=== PATIENT | female | born 1990 ===

== ENCOUNTER → 2017-09-27 | Outpatient (REF) | payer OTHER ==
[2017-09-27 18:24] LABS: HCG, SERUM QUANTITATIVE < 1.0 MIU/ML; THYROID STIMULATING HORMONE 0.949 uIU/ML (0.358-3.740)
[2017-09-27 19:20] LABS: PROGESTERONE 1.1 NG/ML
[2017-09-27 19:20] LABS: ESTRADIOL 27.1 PG/ML; LUTEINIZING HORMONE 3.9 mIU/mL
[2017-09-27 19:21] LABS: FOLLICLE STIMULATING HORMONE 4.5 mIU/mL
== END ==
LOC: M LABDRAW1 16:51
DX: E28.9 Ovarian dysfunction, unspecified (principal)

== ENCOUNTER → 2017-10-08 | Outpatient (CLI) | payer OTHER ==
[2017-10-08 12:56] LABS: PROGESTERONE 0.6 NG/ML
[2017-10-08 12:56] LABS: ESTRADIOL 116.3 PG/ML; LUTEINIZING HORMONE 5.3 mIU/mL
== END ==
LOC: M WUC 10:49
DX: E28.9 Ovarian dysfunction, unspecified (principal)

== ENCOUNTER → 2017-10-29 | Outpatient (CLI) | payer OTHER ==
[2017-10-29 16:56] LABS: HCG, SERUM QUANTITATIVE 704 MIU/ML
[2017-10-29 16:56] LABS: PROGESTERONE 42.3 NG/ML
== END ==
LOC: M WUC 13:36
DX: Z32.00 Encounter for pregnancy test, result unknown (principal)
CPT/HCPCS: 84702

== ENCOUNTER → 2017-10-31 | Outpatient (CLI) | payer OTHER ==
[2017-10-31 19:54] LABS: HCG, SERUM QUANTITATIVE 1663 MIU/ML; THYROID STIMULATING HORMONE 0.703 uIU/ML (0.358-3.740)
[2017-11-01 09:21] LABS: ESTRADIOL 327.9 PG/ML
[2017-11-01 09:44] LABS: PROGESTERONE 58.6 NG/ML
== END ==
LOC: M WUC 16:15
DX: E28.9 Ovarian dysfunction, unspecified (principal)
CPT/HCPCS: 84443

== ENCOUNTER → 2017-11-08 | Outpatient (CLI) | payer OTHER ==
[2017-11-08 18:09] LABS: ESTRADIOL 597.9 PG/ML
[2017-11-08 18:17] LABS: HCG, SERUM QUANTITATIVE 25526 MIU/ML
[2017-11-08 18:59] LABS: PROGESTERONE 66.9 NG/ML
== END ==
LOC: M WUC 16:16
DX: O09.00 Supervision of pregnancy with history of infertility, unspecified trimester (principal)

== ENCOUNTER → 2017-11-15 | Outpatient (CLI) | payer OTHER ==
[2017-11-15 13:54] LABS: PROGESTERONE 54.2 NG/ML
[2017-11-15 13:55] LABS: ESTRADIOL 852.3 PG/ML
[2017-11-15 14:02] LABS: HCG, SERUM QUANTITATIVE 82130 MIU/ML; THYROID STIMULATING HORMONE 0.706 uIU/ML (0.358-3.740)
== END ==
LOC: M WUC 10:32
DX: Z32.01 Encounter for pregnancy test, result positive (principal)
CPT/HCPCS: 84443

== ENCOUNTER → 2017-11-26 | Outpatient (CLI) | payer OTHER ==
[2017-11-26 20:03] LABS: ESTRADIOL 1788.1 PG/ML
[2017-11-26 20:03] LABS: PROGESTERONE 58.4 NG/ML
[2017-11-26 20:11] LABS: HCG, SERUM QUANTITATIVE 181226 MIU/ML; THYROID STIMULATING HORMONE 0.273 uIU/ML (0.358-3.740)
== END ==
LOC: M WUC 16:14
DX: O09.00 Supervision of pregnancy with history of infertility, unspecified trimester (principal)

== ENCOUNTER → 2017-12-31 | Outpatient (REF) | payer OTHER ==
[2017-12-31 20:10] LABS: HEMATOCRIT 35.9 % (36.0-47.0); HEMOGLOBIN 11.8 g/dl (12.0-15.5); MEAN CORPUSCULAR HGB CONC 32.9 g/dl (32.0-36.5); MEAN CORPUSCULAR VOLUME 91.3 fl (80.0-96.0); PLATELET COUNT, AUTOMATED 239 10^3/uL (150-450); RED BLOOD COUNT 3.93 10^6/uL (4.00-5.40); WHITE BLOOD COUNT 11.1 10^3/uL (4.0-10.0)
[2017-12-31 23:43] LABS: CHLAMYDIA DNA AMPLIFICATION NEGATIVE (NEGATIVE); GC DNA AMPLIFICATION NEGATIVE (NEGATIVE)
[2018-01-02 11:36] LABS: HBsAg Prenatal NEGATIVE (NEGATIVE); RUBELLA IgG QUALITATIVE IMMUNE (IMMUNE)
[2018-01-02 12:03] LABS: HEPATITIS C VIRUS ABY INDEX 0.1 INDEX (<0.8)
[2018-01-02 12:05] LABS: HIV 1&2 SCREEN CENTAUR NEGATIVE (NEGATIVE)
== END ==
LOC: M LAB REF 16:59
DX: Z34.81 Encounter for supervision of other normal pregnancy, first trimester (principal)